=== PATIENT | female | born 1935 | race Caucasian/White ===

== ENCOUNTER 2017-11-21 11:33 | Observation (INO) | payer OTHER ==
[~2017-11-21] VITALS: Ht 167.6 cm; Wt 63.5 kg
[~2017-11-21 11:33] MED LIST: COZAAR 50 MG TA50 M1 PO; ELIQUIS2.5 MG PO; FENTANYL PA50 MCG/HR TRANSDERM; FENTANYL PATCH75 MCG TP; LEVOTHROID; LEVOTHYROXIN0.075 MG PO; MULTI VITAMIN1 EACH PO; PREVACID PO; PRILOSEC 20 MG20 MG PO; SYNTHROID75 MCG PO; VICODIN
[2017-11-21 11:37] VITALS: BP 201/90
[2017-11-21 12:45] LABS: ABSOLUTE LYMPHOCYTES 1.9 thou/uL (0.8-5.3); ABSOLUTE MONOCYTES 0.5 thou/uL (0.0-1.2); ABSOLUTE NEUTROPHILS 7.6 thou/uL (1.6-8.1); BASOPHILS 0.5 %; EOSINOPHILS 0.1 %; HEMATOCRIT 40.2 % (37.0-47.0); HEMOGLOBIN 13.6 gm/dL (12.0-15.0); LYMPHOCYTES 18.9 %; MCH 32.3 pg (26.0-34.0); MCHC 33.8 g/dL (28.0-37.0); MCV 95.5 fL (80.0-100.0); MONOCYTES 5.1 %; MPV 8.2 fl. (7.2-11.1); NUCLEATED RBCS 0 /100WBC; PLATELET COUNT* 223 thou/uL (150-400); POLYS 75.4 %; RBC 4.21 mil/uL (4.20-5.00); RDW-CV 13.6 % (10.5-14.5)
[2017-11-21 13:08] LABS: ANION GAP 12 mmol/L (7-16); BUN 18 mg/dL (7-18); CALCIUM 9.6 mg/dL (8.5-10.1); CHLORIDE 96 mmol/L (98-107); CO2 25 mmol/L (21-32); CREATININE 1.1 mg/dL (0.6-1.3); GLUCOSE 124 mg/dL (70-99); POTASSIUM 3.6 mmol/L (3.5-5.1); SODIUM 133 mmol/L (136-145)
[2017-11-21 13:09] LABS: APTT 29.7 Seconds (25.0-31.3); PROTIME 10.1 Seconds (9.20-11.50)
[2017-11-21 13:19] LABS: ALBUMIN 4.3 g/dL (3.4-5.0); ALKALINE PHOSPHATASE 86 U/L (46-116); LIPASE 162 U/L (73-393); NT-PRO BRAIN NAT PEPTIDE 422 pg/mL (<300); SGOT 15 U/L (15-37); SGPT 12 U/L (30-65); TOTAL BILIRUBIN 0.5 mg/dL (<0.1-1.0); TOTAL PROTEIN 7.6 g/dL (6.4-8.2); TROPONIN-I LEVEL <0.06 ng/mL (<0.06)
[2017-11-21 15:04] VITALS: BP 164/71
[2017-11-21 20:00] VITALS: BP 147/60
[2017-11-21 23:40] VITALS: BP 139/61
[2017-11-22 04:35] VITALS: BP 132/54
[2017-11-22 05:07] LABS: HEMATOCRIT 33.8 % (37.0-47.0); MCH 32.1 pg (26.0-34.0); MCHC 34.1 g/dL (28.0-37.0); MCV 94.1 fL (80.0-100.0); MPV 8.1 fl. (7.2-11.1); RBC 3.59 mil/uL (4.20-5.00); RDW-CV 13.6 % (10.5-14.5); WBC 9.1 thou/uL (4.0-11.0)
[2017-11-22 05:40] LABS: ANION GAP 10 mmol/L (7-16); BUN 13 mg/dL (7-18); CALCIUM 8.9 mg/dL (8.5-10.1); CHLORIDE 102 mmol/L (98-107); CO2 24 mmol/L (21-32); GLUCOSE 94 mg/dL (70-99); MAGNESIUM 1.9 mg/dL (1.8-2.4); SODIUM 136 mmol/L (136-145); TROPONIN-I LEVEL <0.06 ng/mL (<0.06)
[2017-11-22 05:59] LABS: HEMOGLOBIN 11.5 gm/dL (12.0-15.0)
[2017-11-22 07:30] VITALS: BP 125/66
[2017-11-22 15:24] VITALS: BP 125/66
--- NOTE | 2017-11-22 15:53 | EKG ---
[place] [address] ELECTROCARDIOGRAM REPORT Name: Bin CHEN [address] [id number] Admission: 11/21/17 Attend Phys: Casey Coronado, Discharge: Date of : 33 Report #: [id number] THIS REPORT FOR: //name// [facility] ED Test Date: 2017-11-21 Test Time: 11:42:12 Pat Name: Bin CHEN Department: Room: Gender: F Celery Packer: RADHA : 1935 Requested By: Susana Varner Order Number: [id number] MD: Raza Thompson Measurements Intervals [place] Rate: 88 P: 70 AR: 268 QRS: -15 QRSD: 90 T: 71 QT: 374 QTc: 453 Interpretive Statements Sinus rhythm Prolonged AR interval Left atrial enlargement Borderline left axis deviation Compared to ECG 06/02/2015 11:49:17 First degree AV block now present Electronically Signed On 11-22-2017 15:53:14 CDT by Raza Thompson [email or web address] <ELECTRONICALLY SIGNED> By: Raza Thompson MD, [facility] 11/22/17 1553 1142 1142 Raza Thompson MD, [facility] /EPI
--- NOTE | 2017-11-24 17:14 | CON ---
[address] [address] CONSULTATION Name: Bin CHEN Room: [address] Karo Sams#: [id number] Admission: 11/21/17 Attend Phys: Casey Coronado, Discharge: 11/22/17 Date of : 34 Report #: [id number] THIS REPORT FOR: //name// CC: Porsche Coronado DATE OF SERVICE: 11/22/2017 INDICATION: Chest pain. HISTORY OF PRESENT ILLNESS: The patient is a very pleasant 82-year-old white female with no prior history of coronary disease. She was admitted to the hospital with midsternal chest discomfort and palpitations. She did rule out for myocardial infarction with serial enzymes. EKG shows sinus rhythm with no significant ST or T-wave abnormalities. At the time of my interview, she is pain free. She reports the pain starting on Thursday and being intermittent through Thursday and Thursday. There was no radiation of the discomfort. She had no significant shortness of breath or diaphoresis with the discomfort. She denied any nausea or vomiting. There were no other associated symptoms. The pain was not worse with activity. She has dyspnea on exertion, but no orthopnea or shortness of breath at rest. She denies any history of syncope. Cardiac risk factor significant only for hypertension. PAST MEDICAL HISTORY: 1. Hypothyroidism. 2. Hypertension. PAST SURGICAL HISTORY: 1. T and A as a child. 2. TAHBSO. 3. Chronic back pain with previous injections. FAMILY HISTORY: The patient's mother developed heart disease in her 60s and in her 80s. There was no history of sudden . SOCIAL HISTORY: The patient is . She drinks alcohol rarely. She does not smoke now nor has she ever. ALLERGIES: SHE HAS MEDICAL INTOLERANCE [place] [address] CONSULTATION Name: Bin CHEN Room: [address] Karo Sams#: [id number] Admission: 11/21/17 Attend Phys: Casey Coronado, Discharge: 11/22/17 Date of : 33 Report #: [id number] HOME MEDICATIONS: Eliquis 2.5 mg p.o. b.i.d., levothyroxine 75 mcg daily, losartan 50 mg daily, multivitamin 1 tablet daily, omeprazole 20 mg daily. REVIEW OF SYSTEMS: A 14-point review of systems is positive for hypothyroidism, seasonal allergies, medical intolerance to Darvon and she wears glasses. Otherwise, 14-point review of systems unremarkable. PHYSICAL EXAMINATION: VITAL SIGNS: Blood pressure 125/66, pulse 58 and regular. GENERAL: This is a pleasant lady, in no distress. Mood and affect appropriate. HEENT: The patient is wearing glasses. Extraocular muscles intact. Mucous membranes are moist. NECK: Shows no jugular venous distention. There are no carotid bruits. CHEST: Reveals clear lung sapp without wheezes, rales or rhonchi. CARDIOVASCULAR: Reveals a regular rhythm with normal S1 and S2. I do not appreciate gallop or murmur. ABDOMEN: Reveals normal bowel sounds. The abdomen is soft and nontender. EXTREMITIES: Shows no edema. Peripheral pulses 2+ and palpable. SKIN: Warm and dry. A 12-lead EKG shows sinus rhythm with no significant ST or T-wave abnormalities. LABORATORY DATA: Reviewed. Electrolytes within normal limits. Troponins are less than 0.06 on 3 separate occasions. IMPRESSION AND RECOMMENDATIONS: 1. Atypical chest pain. The patient is ruled out for myocardial infarction. I believe she could be safely discharged to home and follow up as an outpatient with stress testing. This will be arranged. 2. History of gastroesophageal reflux. Continue omeprazole at current dose. 3. Hypertension. Blood pressure adequately controlled on losartan. 4. The patient has been on Eliquis for some time for possible diagnosis of atrial fibrillation, although I can find no indication of atrial fibrillation past or present. At this point in time, I would discontinue Eliquis. <ELECTRONICALLY SIGNED> By: Raza Thompson MD, FACC 11/24/17 1714 0943 1944Micmichel Thompson MD, FACC /nt
== END 2017-11-22 16:51 | disposition home or self-care (01) ==
LOC: M.ERS 11:33 → M.TBA-ER 14:11 → M.2W 14:11
PROVIDERS: Personal Emergency Response Attendant; ADMIT Family Medicine
DX: R07.89 Other chest pain (principal); I10 Essential (primary) hypertension; E03.9 Hypothyroidism, unspecified; K21.9 Gastro-esophageal reflux disease without esophagitis; M54.5 Low back pain; Z90.710 Acquired absence of both cervix and uterus

== ENCOUNTER 2018-01-08 09:22 | Emergency (ER) | payer OTHER ==
[~2018-01-08] VITALS: Ht 167.6 cm; Wt 59.0 kg
--- NOTE | ~2018-01-08 | EKG ---
[place] [address] ELECTROCARDIOGRAM REPORT Name: MELISSA CHEN [id number] Admission: 01/08/18 Attend Phys: Discharge: 01/08/18 Date of : 34 Report #: [id number] THIS REPORT FOR: //name// [facility] ED Test Date: 2018-01-08 Test Time: 09:56:01 Pat Name: Bin CHEN Department: Room: Gender: F Log Washer: GERALD : 1935 Requested By: Sloan Mari Order Number: [id number] MD: Measurements Intervals [place] Rate: 73 P: 48 SD: 213 QRS: -12 QRSD: 93 T: 36 QT: 379 QTc: 418 Interpretive Statements Sinus rhythm Borderline prolonged SD interval Abnormal R-wave progression, early transition Borderline repolarization abnormality Compared to ECG 11/21/2017 11:42:12 Atrial abnormality no longer present [email or web address] By: [id number] [id number] Epiphany EpiphanyMD /EPI
[2018-01-08] MEDS ORDERED: SYNTHROID100 MC1 PO (09:32)
[2018-01-08 10:12] LABS: ABSOLUTE MONOCYTES 0.7 thou/uL (0.0-1.2); ABSOLUTE NEUTROPHILS 6.5 thou/uL (1.6-8.1); BASOPHILS 0.2 %; EOSINOPHILS 0.1 %; HEMATOCRIT 39.6 % (37.0-47.0); HEMOGLOBIN 13.4 gm/dL (12.0-15.0); LYMPHOCYTES 21.5 %; MCH 31.9 pg (26.0-34.0); MCHC 33.8 g/dL (28.0-37.0); MCV 94.4 fL (80.0-100.0); MONOCYTES 7.8 %; MPV 6.7 fl. (7.2-11.1); NUCLEATED RBCS 0 /100WBC; PLATELET COUNT* 298 thou/uL (150-400); POLYS 70.4 %; RDW-CV 13.4 % (10.5-14.5); WBC 9.2 thou/uL (4.0-11.0)
[2018-01-08 10:23] LABS: ANION GAP 8 mmol/L (7-16); BUN 8 mg/dL (7-18); CALCIUM 9.8 mg/dL (8.5-10.1); CHLORIDE 95 mmol/L (98-107); CO2 24 mmol/L (21-32); CREATININE 0.9 mg/dL (0.6-1.3); GLUCOSE 117 mg/dL (70-99); POTASSIUM 3.6 mmol/L (3.5-5.1); PROTIME 10.1 Seconds (9.20-11.50); SODIUM 127 mmol/L (136-145)
[2018-01-08 10:34] LABS: ALBUMIN 3.9 g/dL (3.4-5.0); ALKALINE PHOSPHATASE 85 U/L (46-116); LIPASE 427 U/L (73-393); NT-PRO BRAIN NAT PEPTIDE 525 pg/mL (<300); SGOT 13 U/L (15-37); SGPT 19 U/L (30-65); TOTAL BILIRUBIN 0.4 mg/dL (<0.1-1.0); TOTAL PROTEIN 7.4 g/dL (6.4-8.2); TROPONIN-I LEVEL <0.06 ng/mL (<0.06)
[2018-01-08 11:15] LABS: URINE BILIRUBIN NEGATIVE (Negative); URINE BLOOD 2+ (Negative); URINE CLARITY CLEAR; URINE COLOR YELLOW; URINE GLUCOSE-RANDOM NEGATIVE (Negative); URINE KETONES NEGATIVE (Negative); URINE LEUKOCYTES-REFLEX TRACE (Negative); URINE PROTEIN NEGATIVE (Negative); URINE SPECIFIC GRAVITY 1.015 (1.005-1.030); URINE UROBILINOGEN 0.2 E.U./dl (0.2-1.0)
[2018-01-08 11:22] LABS: URINE NITRITE-REFLEX POSITIVE (Negative)
[2018-01-08 11:31] LABS: BACTERIA-REFLEX >30 Many /HPF (None Seen); SQUAMOUS 0-3 Few /LPF (0-3); URINE RBC 3-10 Few /HPF (0-2); URINE WBC-REFLEX 0-5 Rare /HPF (0-5)
[2018-01-08 11:32] LABS: CASTS None Seen /LPF (None Seen); CRYSTALS None Seen /LPF (None Seen); MUCUS 4-6 Moderate strn/LPF (None Seen)
[2018-01-08] MEDS ORDERED: MACROBID 100 M100 M1 PO (11:39)
[2018-01-08] MEDS ORDERED: HYDROCODON-ACE1 EAC7 PO (11:39)
[2018-01-08 11:51] VITALS: BP 154/70
== END 2018-01-08 11:53 | disposition home or self-care (01) ==
LOC: M.ERS 09:22
PROVIDERS: Emergency Medicine
DX: N39.0 Urinary tract infection, site not specified (principal); G89.29 Other chronic pain; M54.5 Low back pain; E03.9 Hypothyroidism, unspecified; I10 Essential (primary) hypertension; Z90.710 Acquired absence of both cervix and uterus; Z88.8 Allergy status to other drugs, medicaments and biological substances

== ENCOUNTER 2018-01-18 16:14 | Emergency (ER) | payer OTHER ==
[~2018-01-18] VITALS: Ht 167.6 cm; Wt 59.0 kg
[~2018-01-18 16:14] MED LIST changes: +HYDROCODON-ACE1 EAC7 PO; +MACROBID 100 M100 M1 PO; +SYNTHROID100 MC1 PO
[2018-01-18 16:48] LABS: ABSOLUTE EOSINOPHILS 0.1 thou/uL (0.0-0.7); ABSOLUTE LYMPHOCYTES 2.9 thou/uL (0.8-5.3); ABSOLUTE MONOCYTES 0.6 thou/uL (0.0-1.2); ABSOLUTE NEUTROPHILS 4.3 thou/uL (1.6-8.1); BASOPHILS 0.6 %; EOSINOPHILS 1.6 %; HEMATOCRIT 41.3 % (37.0-47.0); HEMOGLOBIN 13.7 gm/dL (12.0-15.0); LYMPHOCYTES 36.4 %; MCH 32.1 pg (26.0-34.0); MCHC 33.1 g/dL (28.0-37.0); MCV 96.9 fL (80.0-100.0); MONOCYTES 7.4 %; MPV 6.9 fl. (7.2-11.1); NUCLEATED RBCS 0 /100WBC; PLATELET COUNT* 232 thou/uL (150-400); RBC 4.26 mil/uL (4.20-5.00); RDW-CV 13.5 % (10.5-14.5)
[2018-01-18 16:52] LABS: ANION GAP 6 mmol/L (7-16); BUN 14 mg/dL (7-18); CALCIUM 10.3 mg/dL (8.5-10.1); CHLORIDE 95 mmol/L (98-107); CO2 28 mmol/L (21-32); CREATININE 1.2 mg/dL (0.6-1.3); GLUCOSE 113 mg/dL (70-99); POTASSIUM 4.1 mmol/L (3.5-5.1); SODIUM 129 mmol/L (136-145)
[2018-01-18 17:07] LABS: ALBUMIN 3.9 g/dL (3.4-5.0); ALKALINE PHOSPHATASE 85 U/L (46-116); LIPASE 95 U/L (73-393); SGOT 12 U/L (15-37); SGPT 14 U/L (30-65); TOTAL BILIRUBIN 0.2 mg/dL (<0.1-1.0); TOTAL PROTEIN 7.5 g/dL (6.4-8.2); TROPONIN-I LEVEL <0.06 ng/mL (<0.06)
[2018-01-18 17:45] LABS: URINE BILIRUBIN NEGATIVE (Negative); URINE BLOOD TRACE (Negative); URINE CLARITY CLEAR; URINE COLOR YELLOW; URINE GLUCOSE-RANDOM NEGATIVE (Negative); URINE KETONES NEGATIVE (Negative); URINE LEUKOCYTES-REFLEX NEGATIVE (Negative); URINE NITRITE-REFLEX NEGATIVE (Negative); URINE PROTEIN NEGATIVE (Negative); URINE UROBILINOGEN 0.2 E.U./dl (0.2-1.0)
[2018-01-18] MEDS ORDERED: COMPAZINE10 M2 PO (17:55)
[2018-01-18 18:06] VITALS: BP 140/66
--- NOTE | 2018-01-20 13:30 | EKG ---
[place] [address] ELECTROCARDIOGRAM REPORT Name: MELISSA CHEN [id number] Admission: 01/18/18 Attend Phys: Discharge: 01/18/18 Date of : 34 Report #: [id number] THIS REPORT FOR: //name// [facility] ED Test Date: 2018-01-18 Test Time: 16:41:13 Pat Name: MELISSA CHEN Department: Room: Gender: F Sliding Joint Maker: Hafsa BRADFORD : 1935 Requested By: Anamika Segura Order Number: [id number] MD: Raza Thompson Measurements Intervals [place] Rate: 74 P: 61 TN: 204 QRS: -10 QRSD: 93 T: 76 QT: 365 QTc: 405 Interpretive Statements Sinus rhythm Ventricular premature complex Nonspecific T abnrm, anterolateral leads Compared to ECG 11/21/2017 11:42:12 Ventricular premature complex(es) now present First degree AV block no longer present Atrial abnormality no longer present Electronically Signed On 01-20-2018 13:30:36 CDT by Raza Thompson [email or web address] <ELECTRONICALLY SIGNED> By: Raza Thompson MD, FACC 01/20/18 1330 1641 1641 Raza Thompson MD, [facility] /EPI
== END 2018-01-18 18:09 | disposition home or self-care (01) ==
LOC: M.ERS 16:14
PROVIDERS: Nurse Practitioner Family
DX: R11.0 Nausea (principal); I10 Essential (primary) hypertension; E03.9 Hypothyroidism, unspecified; G89.29 Other chronic pain; M54.5 Low back pain; Z90.710 Acquired absence of both cervix and uterus; Z88.2 Allergy status to sulfonamides; Z88.8 Allergy status to other drugs, medicaments and biological substances

== ENCOUNTER 2018-03-13 06:12 | Inpatient (IN) | payer OTHER ==
[~2018-03-13] VITALS: Ht 167.6 cm; Wt 76.2 kg
[~2018-03-13 06:12] MED LIST changes: +COMPAZINE10 M2 PO
[2018-03-13 06:23] VITALS: BP 197/82
[2018-03-13] MEDS ORDERED: ELIQUIS2.5 MG PO (06:33)
[2018-03-13 06:59] LABS: ABSOLUTE EOSINOPHILS 0.1 thou/uL (0.0-0.7); ABSOLUTE LYMPHOCYTES 1.6 thou/uL (0.8-5.3); ABSOLUTE MONOCYTES 0.5 thou/uL (0.0-1.2); BASOPHILS 0.6 %; EOSINOPHILS 1.1 %; HEMATOCRIT 37.3 % (37.0-47.0); HEMOGLOBIN 12.5 gm/dL (12.0-15.0); LYMPHOCYTES 22.3 %; MCHC 33.6 g/dL (28.0-37.0); MCV 98.3 fL (80.0-100.0); MONOCYTES 6.4 %; MPV 7.3 fl. (7.2-11.1); NUCLEATED RBCS 0 /100WBC; PLATELET COUNT* 222 thou/uL (150-400); POLYS 69.6 %; RBC 3.79 mil/uL (4.20-5.00); RDW-CV 15.8 % (10.5-14.5); WBC 7.2 thou/uL (4.0-11.0)
[2018-03-13 07:09] LABS: ANION GAP 7 mmol/L (7-16); BUN 14 mg/dL (7-18); CALCIUM 8.7 mg/dL (8.5-10.1); CHLORIDE 105 mmol/L (98-107); CO2 27 mmol/L (21-32); CREATININE 0.9 mg/dL (0.6-1.3); GLUCOSE 114 mg/dL (70-99); POTASSIUM 3.7 mmol/L (3.5-5.1); SODIUM 139 mmol/L (136-145)
[2018-03-13 07:24] LABS: ALBUMIN 3.7 g/dL (3.4-5.0); ALKALINE PHOSPHATASE 64 U/L (46-116); LIPASE 443 U/L (73-393); MAGNESIUM 1.8 mg/dL (1.8-2.4); NT-PRO BRAIN NAT PEPTIDE 205 pg/mL (<300); SGOT 10 U/L (15-37); SGPT 14 U/L (30-65); TOTAL BILIRUBIN 0.3 mg/dL (<0.1-1.0); TOTAL PROTEIN 6.9 g/dL (6.4-8.2); TROPONIN-I LEVEL <0.06 ng/mL (<0.06)
[2018-03-13 09:20] VITALS: BP 144/76
[2018-03-13 17:23] VITALS: BP 152/67
[2018-03-13 20:00] VITALS: BP 151/78
[2018-03-14] VITALS: BP 148/70
[2018-03-14 04:00] VITALS: BP 154/70
[2018-03-14 08:30] VITALS: BP 137/81
[2018-03-14] MEDS ORDERED: COREG6.25 MG PO ×2 (12:10→12:12)
[2018-03-14 12:11] VITALS: BP 137/81
[2018-03-14 12:43] VITALS: BP 150/81
--- NOTE | 2018-03-14 16:58 | EKG ---
[place] [address] ELECTROCARDIOGRAM REPORT Name: SHELBY CHEN Room: [address] DIS IN M.R.#: [id number] Admission: 03/13/18 Attend Phys: Iona Corona Discharge: 03/14/18 Date of : 33 Report #: [id number] THIS REPORT FOR: //name// [facility] ED Test Date: 2018-03-13 Test Time: 06:19:52 Pat Name: SHELBY CHEN Department: Room: [facility] Gender: F Manager Resource: Hafsa CORBIN : 1935 Requested By: Xavier Chakraborty Order Number: [id number] MD: Raza Thompson Measurements Intervals [place] Rate: 82 P: 46 WI: 185 QRS: -17 QRSD: 94 T: 56 QT: 371 QTc: 434 Interpretive Statements Sinus rhythm Borderline left axis deviation Minimal ST depression, anterolateral leads Compared to ECG 01/18/2018 16:41:13 ST (T wave) deviation now present Ventricular premature complex(es) no longer present Electronically Signed On 03-14-2018 16:58:41 CDT by Raza Thompson [email or web address] <ELECTRONICALLY SIGNED> By: Raza Thompson MD, FACC 03/14/18 1658 0619 0619 Raza Thompson MD, FACC /EPI
--- NOTE | 2018-03-22 12:28 | CON ---
[facility] [address] [place] [address] CONSULTATION Name: SHELBY CHEN Room: [address] IN M.R.#: [id number] Admission: 03/13/18 Attend Phys: Iona Corona Discharge: 03/14/18 Date of : 34 Report #: [id number] THIS REPORT FOR: //name// CC: Tom Jacobs INDICATION: Chest pain and questionable arrhythmia. HISTORY OF PRESENT ILLNESS: The patient is a very pleasant 82-year-old white female who was admitted to the hospital with chest pain. She has intermittently been on Eliquis. Extensive review of available records shows no evidence of atrial fibrillation. On admission, the patient was in sinus rhythm. She has remained in sinus rhythm throughout hospitalization. She was admitted yesterday with upper chest pressure starting yesterday morning and lasting at least an hour or two. The pain resolved spontaneously. EKG showed sinus rhythm without acute ST or T-wave abnormalities. She did rule out for myocardial infarction with serial enzymes. At the time of my interview, she is pain-free. She had no radiation of the discomfort. She denied any associated diaphoresis or nausea. She is without other cardiac complaint at this time. PAST MEDICAL HISTORY: 1. Hypertension. 2. Hypothyroidism. PAST SURGICAL HISTORY: 1. T and A as a child. 2. TAHBSO. 3. Chronic back pain with previous injections. FAMILY HISTORY: The patient's mother in her 90s. There was no history of sudden . No history of premature atherosclerotic coronary artery disease. SOCIAL HISTORY: The patient is . She does not smoke. She drinks alcohol rarely. ALLERGIES: Intolerance to DARVON. HOME MEDICATIONS: Eliquis 2.5 mg p.o. b.i.d., Synthroid 100 mcg p.o. q. day, Cozaar 50 mg p.o. q. day, multivitamin 1 tablet daily. REVIEW OF SYSTEMS: A 14-point GENERAL: She denies convulsions, seizures or focal paralysis. In general, there is no unexplained weight loss or fever. RESPIRATORY: She denies cough, sputum production or underlying lung disease. CARDIAC: [place] [address] CONSULTATION Name: SHELBY CHEN MELISSA Room: [address]#: [id number] Admission: 03/13/18 Attend Phys: Iona Corona Discharge: 03/14/18 Date of : 34 Report #: [id number] ENDOCRINE: She has hypothyroidism. She denies diabetes. GASTROINTESTINAL: No nausea, vomiting, hematemesis, melena, hematochezia, jaundice, or hepatitis. GENITOURINARY: No dysuria or hematuria. HEMATOLOGIC AND LYMPHATIC: No history of anemia, bleeding disorder, cancer, or blood clots. ALLERGY AND IMMUNOLOGIC: She has intolerance as outlined above. No seasonal allergies. PSYCHIATRIC: No depression or anxiety. MUSCULOSKELETAL: She has arthritis without connective tissue diseases. SKIN: No recent rashes, hives or chronic skin conditions. EYES: She does wear glasses. She has no acute loss in vision. EARS, NOSE, MOUTH, THROAT: She denies decreased hearing or epistaxis. PHYSICAL EXAMINATION: VITAL SIGNS: Stable. Blood pressure 137/81, pulse 86 and regular. GENERAL: This is a pleasant elderly female in no distress. Mood and affect appropriate. HEENT: The patient is wearing glasses. Extraocular muscles intact. Mucous membranes are moist. NECK: Shows no jugular venous distention. There are no carotid bruits. CHEST: Reveals clear lung sapp without wheezes or rales. CARDIAC: Reveals a regular rhythm with normal S1, S2. I do not appreciate gallop or murmur. ABDOMEN: Reveals normal bowel sounds. The abdomen is soft and nontender. EXTREMITIES: Shows no edema. Peripheral pulses 2+ and palpable. SKIN: Warm and dry. IMPRESSION AND PLAN: 1. Atypical chest pain. The patient has ruled out for myocardial infarction. I believe she could be followed up with outpatient stress testing. 2. The patient has been on Eliquis intermittently. I find no history of atrial fibrillation. At this point in time, I would discontinue Eliquis. 3. Hypertension, adequately controlled on current regimen. At this point in time, the patient appears stable for discharge from a cardiac standpoint. <ELECTRONICALLY SIGNED> By: Raza Thompson MD, FACC 03/22/18 1228 1158 1901[facility] Hospitalmichel Thompson MD, FACC /nt
== END 2018-03-14 13:53 | disposition home or self-care (01) | DRG 309 ==
LOC: M.ERS 06:12 → M.TBA-ER 08:10 → M.2W 08:10
PROVIDERS: Emergency Medicine Emergency Medical Services; ADMIT Internal Medicine
DX: I48.0 Paroxysmal atrial fibrillation (principal); D68.69 Other thrombophilia; G89.29 Other chronic pain; M54.5 Low back pain; E03.9 Hypothyroidism, unspecified; M54.9 Dorsalgia, unspecified; I10 Essential (primary) hypertension; Z88.2 Allergy status to sulfonamides; Z88.8 Allergy status to other drugs, medicaments and biological substances; Z90.710 Acquired absence of both cervix and uterus; Z79.82 Long term (current) use of aspirin; Z79.899 Other long term (current) drug therapy; Z82.49 Family history of ischemic heart disease and other diseases of the circulatory system

== ENCOUNTER 2019-02-28 10:12 | Emergency (ER) | payer OTHER ==
[~2019-02-28] VITALS: Ht 167.6 cm; Wt 63.5 kg
[~2019-02-28 10:12] MED LIST changes: +COREG6.25 MG PO
[2019-02-28 10:31] LABS: ABSOLUTE BASOPHILS 0.1 thou/uL (0.0-0.2); ABSOLUTE EOSINOPHILS 0.3 thou/uL (0.0-0.7); ABSOLUTE LYMPHOCYTES 1.7 thou/uL (0.8-5.3); ABSOLUTE MONOCYTES 0.5 thou/uL (0.0-1.2); ABSOLUTE NEUTROPHILS 2.6 thou/uL (1.6-8.1); BASOPHILS 1.9 %; EOSINOPHILS 5.6 %; HEMOGLOBIN 12.6 gm/dL (12.0-15.0); LYMPHOCYTES 33.6 %; MCH 33.6 pg (26.0-34.0); MCHC 34.1 g/dL (28.0-37.0); MCV 98.5 fL (80.0-100.0); MONOCYTES 8.7 %; MPV 7.3 fl. (7.2-11.1); NUCLEATED RBCS 0 /100WBC; PLATELET COUNT* 225 thou/uL (150-400); POLYS 50.2 %; RBC 3.76 mil/uL (4.20-5.00); RDW-CV 13.5 % (10.5-14.5); WBC 5.2 thou/uL (4.0-11.0)
[2019-02-28 10:47] LABS: APTT 26.5 Seconds (25.0-31.3); PROTIME 9.9 Seconds (9.20-11.50)
[2019-02-28 10:48] LABS: ANION GAP 6 mmol/L (7-16); BUN 15 mg/dL (7-18); CALCIUM 8.7 mg/dL (8.5-10.1); CHLORIDE 104 mmol/L (98-107); CO2 29 mmol/L (21-32); CREATININE 0.9 mg/dL (0.6-1.3); GLUCOSE 103 mg/dL (70-99); POTASSIUM 4.2 mmol/L (3.5-5.1); SODIUM 139 mmol/L (136-145)
[2019-02-28 11:04] LABS: ALBUMIN 3.5 g/dL (3.4-5.0); ALKALINE PHOSPHATASE 65 U/L (46-116); CK-MB MASS 1.5 ng/mL (<0.5-3.6); LIPASE 145 U/L (73-393); MAGNESIUM 1.9 mg/dL (1.8-2.4); NT-PRO BRAIN NAT PEPTIDE 261 pg/mL (<300); SGOT 10 U/L (15-37); SGPT 14 U/L (30-65); TOTAL BILIRUBIN 0.2 mg/dL (<0.1-1.0); TOTAL PROTEIN 6.7 g/dL (6.4-8.2); TROPONIN-I LEVEL <0.06 ng/mL (<0.06)
[2019-02-28 13:25] VITALS: BP 150/84
--- NOTE | 2019-03-01 16:11 | EKG ---
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: RADHA : 1935 Requested By: Pato Rodriguez Order Number: [id number] MD: Javier Del Toro Measurements Intervals [place] Rate: 60 P: 53 CT: 224 QRS: -9 QRSD: 90 T: 36 QT: 387 QTc: 387 Interpretive Statements Sinus rhythm Prolonged CT interval Borderline T abnormalities, anterior leads Compared to ECG 03/13/2018 06:19:52 First degree AV block now present T-wave abnormality now present ST (T wave) deviation no longer present Electronically Signed On 03-01-2019 16:11:32 CDT by Javier Del Toro [email or web address] <ELECTRONICALLY SIGNED> By: Javier Del Toro MD, [facility] 03/01/19 1611 1019 1019 Javier Del Toro MD, [facility] /EPI
== END 2019-02-28 13:28 | disposition home or self-care (01) ==
LOC: M.ERS 10:12
PROVIDERS: Family Medicine
DX: R07.89 Other chest pain (principal); I10 Essential (primary) hypertension; G89.29 Other chronic pain; E03.9 Hypothyroidism, unspecified; Z88.2 Allergy status to sulfonamides; Z88.8 Allergy status to other drugs, medicaments and biological substances; Z90.710 Acquired absence of both cervix and uterus

== ENCOUNTER 2019-03-17 20:16 | Inpatient (IN) | payer OTHER ==
[~2019-03-17] VITALS: Ht 167.6 cm; Wt 63.5 kg
--- NOTE | ~2019-03-17 | CON ---
[address] [address] CONSULTATION Name: GUSTAVOSHELBY LITTLEJOHN Room: [address] IN M.R.#: [id number] Admission: 03/18/19 Attend Phys: Dago Cruz Discharge: 03/18/19 Date of : 34 Report #: [id number] THIS REPORT FOR: //name// CC: Porsche Jarrell DICTATED BY: Leanne Meléndez [facility] DATE OF SERVICE: 03/18/2019 Please note at the time of this dictation, the patient was seen and physically examined by myself. REASON FOR CONSULTATION: Epigastric pain and abnormal CT in the right side of her colon. HISTORY OF PRESENT ILLNESS: This is an 83-year-old female who presented to the Emergency Room with having epigastric to right upper quadrant pain, which she states she has been having it for several weeks if not longer. She describes as more chest pain, but upon palpation, it is more epigastric and right upper quadrant pain. She states it was beginning to get a little bit worse, prompting her to come in to be seen. She has seen her PCP and she has been set up to see Cardiology, she says the first part of March. She denies any nausea, vomiting, shortness of air, any diaphoresis with this. She states it is not exacerbated with activity and she has not noticed significant worsening or improvement with eating. She has a negative cardiac history for any MN or cardiac stents. She did have a colonoscopy and EGD back in 2010. Her EGD was negative. Colonoscopy showed collagenous colitis and that was the last time that she was seen by our office. She states she has not seen anyone since that time either. The patient states she also will have an occasional episode of some GERD in which she may take some Maalox off and on. She has not been eating for the last couple of days because of this epigastric pain as well. She does state her bowels do move on a daily basis. She says that has soft and formed. ALLERGIES: SULFA, PROPOXYPHENE. MEDICATIONS: From home are losartan and Synthroid. PAST MEDICAL HISTORY: Hypothyroidism, hypertension. She had had some history of atrial fib in the past. PAST SURGICAL HISTORY: She had a hysterectomy and some history of chronic lumbar pain. FAMILY HISTORY: Negative for [place] [address] CONSULTATION Name: SHELBY CHEN MELISSA Room: [address]#: [id number] Admission: 03/18/19 Attend Phys: Dago Cruz Discharge: 03/18/19 Date of : 34 Report #: [id number] SOCIAL HISTORY: She is . Denies any alcohol except on social occasions. No tobacco or illegal drug use. REVIEW OF SYSTEMS: Twelve-point review of systems is essentially negative except what is mentioned in the HPI. PHYSICAL EXAMINATION: VITAL SIGNS: Temperature 36.8, pulse 58, respirations 14, blood pressure 134/52. HEART: Regular rate and rhythm. LUNGS: Clear. ABDOMEN: Soft, positive bowel sounds in all 4 quadrants with epigastric to right upper quadrant tenderness noted to palpation with very minimal tenderness noted on the right side of the abdomen. LABORATORY DATA: Hemoglobin 11.1, white count 9.1, platelets 279. LFTs are completely normal. Troponin was negative. GFR is 47. PT 10.2, INR is 1. CT reveals a right colonic wall thickening with left-sided colon and moderate amount of stool. Her gallbladder is thickened with being contracted. IMPRESSION: 1. Epigastric and right upper quadrant pain ongoing greater than several weeks. 2. Abnormal CT with right colonic wall thickening and gallbladder wall thickening. 3. Gastroesophageal reflux disease off and on. PLAN: 1. Hepatobiliary scan today. 2. Further recommendations to be made once the above testing has been performed. Thank you for allowing us to participate in this patient's care. Please do not hesitate to call with any questions in regard to this consult. By: [id number] Paul Carter DO /marisol
[2019-03-17 20:21] VITALS: BP 125/71
[2019-03-17 21:13] LABS: ABSOLUTE BASOPHILS 0.1 thou/uL (0.0-0.2); ABSOLUTE EOSINOPHILS 0.2 thou/uL (0.0-0.7); ABSOLUTE LYMPHOCYTES 2.9 thou/uL (0.8-5.3); ABSOLUTE MONOCYTES 0.7 thou/uL (0.0-1.2); ABSOLUTE NEUTROPHILS 5.3 thou/uL (1.6-8.1); BASOPHILS 1.1 %; EOSINOPHILS 1.7 %; HEMATOCRIT 32.7 % (37.0-47.0); HEMOGLOBIN 11.1 gm/dL (12.0-15.0); LYMPHOCYTES 31.8 %; MCH 33.4 pg (26.0-34.0); MCV 98.1 fL (80.0-100.0); MONOCYTES 7.2 %; MPV 7.4 fl. (7.2-11.1); NUCLEATED RBCS 0 /100WBC; PLATELET COUNT* 279 thou/uL (150-400); POLYS 58.2 %; RBC 3.34 mil/uL (4.20-5.00); RDW-CV 14.2 % (10.5-14.5); WBC 9.1 thou/uL (4.0-11.0)
[2019-03-17 21:19] LABS: ANION GAP 9 mmol/L (7-16); BUN 22 mg/dL (7-18); CALCIUM 9.2 mg/dL (8.5-10.1); CHLORIDE 102 mmol/L (98-107); CO2 26 mmol/L (21-32); CREATININE 1.1 mg/dL (0.6-1.3); GLUCOSE 107 mg/dL (70-99); POTASSIUM 3.6 mmol/L (3.5-5.1); SODIUM 137 mmol/L (136-145)
[2019-03-17 21:22] LABS: PROTIME 10.2 Seconds (9.20-11.50)
[2019-03-17 21:31] LABS: ALBUMIN 3.8 g/dL (3.4-5.0); ALKALINE PHOSPHATASE 58 U/L (46-116); LIPASE 338 U/L (73-393); NT-PRO BRAIN NAT PEPTIDE 213 pg/mL (<300); SGOT 9 U/L (15-37); SGPT 13 U/L (30-65); TOTAL BILIRUBIN 0.2 mg/dL (<0.1-1.0); TOTAL PROTEIN 6.8 g/dL (6.4-8.2); TROPONIN-I LEVEL <0.06 ng/mL (<0.06)
[2019-03-17 21:42] LABS: URINE BILIRUBIN NEGATIVE (Negative); URINE BLOOD NEGATIVE (Negative); URINE CLARITY CLEAR; URINE COLOR YELLOW; URINE GLUCOSE-RANDOM NEGATIVE (Negative); URINE KETONES NEGATIVE (Negative); URINE LEUKOCYTES-REFLEX TRACE (Negative); URINE NITRITE-REFLEX NEGATIVE (Negative); URINE PROTEIN NEGATIVE (Negative); URINE SPECIFIC GRAVITY 1.025 (1.005-1.030); URINE UROBILINOGEN 0.2 E.U./dl (0.2-1.0)
[2019-03-17 21:54] LABS: MUCUS None Seen strn/LPF (None Seen)
[2019-03-17 21:55] LABS: BACTERIA-REFLEX 1-9 Few /HPF (None Seen); CASTS None Seen /LPF (None Seen); CRYSTALS None Seen /LPF (None Seen); SQUAMOUS 4-10 Moderate /LPF (0-3); URINE WBC-REFLEX 0-5 Rare /HPF (0-5)
[2019-03-17 21:56] LABS: URINE RBC None Seen /HPF (0-2)
[2019-03-18 04:00] VITALS: BP 148/60
--- NOTE | 2019-03-18 07:10 | NUR ---
THIS NURSE RECEIVED REPORT FROM NOLVIA RUBIO. THIS NURSE TO ASSUME PT CARE AT THIS TIME.
--- NOTE | 2019-03-18 12:42 | EKG ---
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 Technician: CHAUNCEY : 1935 Requested By: Augustina Scott Order Number: [id number] MD: Pramod Benítez Measurements Intervals [place] Rate: 68 P: 54 ME: 210 QRS: -7 QRSD: 89 T: 54 QT: 372 QTc: 396 Interpretive Statements Sinus rhythm Borderline repolarization abnormality Compared to ECG 02/28/2019 10:19:37 First degree AV block no longer present Electronically Signed On 03-18-2019 12:42:20 CDT by Pramod Benítez [email or web address] <ELECTRONICALLY SIGNED> By: Pramod Benítez MD, FAC 03/18/19 1242 20 20 Pramod Benítez MD, [facility] /EPI
--- NOTE | 2019-03-18 14:00 | NUR ---
PT NOT IN ROOM. PT TO [employer] FOR SCAN OF GALLBLADDER.
--- NOTE | 2019-03-18 16:12 | NUR ---
PT BACK FROM [facility].
--- NOTE | 2019-03-18 16:21 | NUR ---
REPORT GIVEN TO NOLVIA DAVIS WHO IS TO ASSUME PT CARE INPATIENT NURSE.
[2019-03-18 16:22] VITALS: BP 131/49
[2019-03-18 17:15] VITALS: BP 131/49
--- NOTE | 2019-03-18 18:21 | NUR ---
ASSUMED CARE OF PATIENT AT APPROX 0730. ALERT AND ORIENTED X4. ASSESSMENT COMPLETED AND CHARTED. VSS ON ROOM AIR. GIVEN SCHEDULED TRAMADOL, MINIMAL COMPLAINT OF PAIN. NO OTHER COMPLAINTS. FLUIDS AND ANTIBIOTIC INFUSED ORDERED. PATIENT UP AD DELTA. DAVE LIGHT PLACED IN REACH. WILL CONTINUE TO MONITOR.
--- NOTE | 2019-03-18 20:00 | NUR ---
REMOVED PT IV SO SHE COULD LEAVE AMA. PRESSURE HELD, BLEEDING STOPPED, BANDAID AND COTTON BALL APPLIED. PT LEFT FLOOR TO RETURN HOME.
== END 2019-03-18 20:00 | disposition left against medical advice (07) | DRG 373 ==
LOC: M.ERS 20:16 → M.TBA-ER 03-18 00:33 → M.ORTHSURG 03-18 16:32
PROVIDERS: Emergency Medicine; ADMIT Family Medicine
DX: A04.9 Bacterial intestinal infection, unspecified (principal); E03.9 Hypothyroidism, unspecified; I10 Essential (primary) hypertension; I48.91 Unspecified atrial fibrillation; G89.29 Other chronic pain; Z53.21 Procedure and treatment not carried out due to patient leaving prior to being seen by health care provider; M54.5 Low back pain; K21.9 Gastro-esophageal reflux disease without esophagitis; Z82.49 Family history of ischemic heart disease and other diseases of the circulatory system; Z90.710 Acquired absence of both cervix and uterus; Z88.2 Allergy status to sulfonamides; Z88.8 Allergy status to other drugs, medicaments and biological substances; Z79.899 Other long term (current) drug therapy

== ENCOUNTER → 2019-04-15 | Outpatient (CLI) | payer OTHER ==
--- NOTE | 2019-04-15 15:57 | CARDNUC ---
[place] [address] CARDIAC NUCLEAR IMAGING REPORT Name: SHELBY CHEN Room: [facility]#: [id number] Admission: 04/15/19 Attend Phys: Ny Kyle Discharge: Date of : 33 Date of Service: 04/15/19 1557 Report #: [id number] THIS REPORT FOR: //name// APPROVED REPORT Study performed: 04/15/2019 14:26:38 Exam: Nuclear Stress Test Indication: Atrial Fibrillation, elevated calcium score Patient Location: Out-Patient Stress Tech: Jia Dorsey Stress Nurse: Lashell Mares RN Ht: 5 ft 6 in Wt: 141 lbs BSA: 1.72 m2 BMI: 22.75 Medical History Medical History: CAD non obstructive, HTN, Hyperlipidemia Medications: losartan, carvedilol Allergies: darvon, tramadol Cardiac Risk Factors: Age, HTN, Hyperlipidemia, FHX of CAD Exercise History: Physically active Meds Held (24 hrs): carvedilol Stress Test Details Stress Test: Pharmacologic stress testing performed using 0.4 mg of regadenoson per 5 mL given IV over 10 seconds. Reason for pharmacologic stress test: physical limitation. HR Resting HR: 64 bpm Max Heart Rate (APMHR): 135 bpm Max HR Achieved: 101 bpm Target HR (85% APMHR): 114 bpm % of APMHR: 74 Recovery HR: 94 bpm HR response to stress: Normal HR response to stress BP Resting BP: 148/86 mmHg Max BP: 187/75 mmHg BP response to stress: Normal blood pressure response to stress. ECG Resting ECG: Sinus Rhythm, [place] [address] CARDIAC NUCLEAR IMAGING REPORT Name: GUSTAVOSHELBY TORRES Room: [facility]#: [id number] Admission: 04/15/19 Attend Phys: Ny Kyle Discharge: Date of : 33 Date of Service: 04/15/19 1557 Report #: [id number] Stress ECG: Sinus Rhythm, normal EKG ST Change: None Maximum ST Deviation: 0 mm Arrhythmia: VPC's Recovery ECG: Sinus Rhythm, normal EKG Recovery ST Change: None Recovery ST Deviation: 0 mm Recovery Arrhythmia: VPC Clinical Reason for Termination: Completed protocol Stress Symptoms: None Exercise duration: 0 min sec Exercise capacity: 1 METs Nurse Comments pt too unsteady to walk on treadmill Stress ECG Conclusion Normal hemodynamic response to pharmacologic stress. Non-diagnostic EKG stress due to failure to attain target HR. NM EXAM: Myocardial Perfusion REST/STRESS Imaging Protocol: Rest Tc-99m/Stress Tc-99m 1 day Resting Data Rest SPECT myocardial perfusion imaging was performed in supine position 30 minutes following the intravenous injection of 10.3 mCi of Tc-99m Sestamibi. Time of rest injection: 13:05 The images were gated to evaluate regional wall motion and calculate left ventricular ejection fraction. Administration Route: IV Administration Site: Right Wrist Pharmacologic Stress Pharmacologic stress test was performed by injecting Regadenoson 0.4 mg IV push followed by the intravenous injection of 35.7 mCi of Tc-99m Sestamibi. Time of stress injection: 14:25 Administration Route: IV Administration Site: Right Wrist Heart Rate at time of stress injection: 101 bpm. Gated Stress SPECT was performed 40 minutes after stress injection. The images were gated to evaluate regional [place] [address] CARDIAC NUCLEAR IMAGING REPORT Name: SHELBY CHEN MELISSA Room: [facility]#: [id number] Admission: 04/15/19 Attend Phys: Ny Kyle Discharge: Date of : 33 Date of Service: 04/15/19 1557 Report #: [id number] left ventricular ejection fraction. Prone imaging was performed. Study Quality Study: Good Artifact: Mild Diaphragmatic artifact Lung Uptake: Normal Study Data At rest, the left ventricular ejection fraction was 68%.. Post stress, the left ventricular ejection was 69%.. SSS: 6 SRS: 3 SDS: 3 TID = 1.10. Perfusion The resting study demonstrated a moderate in size and mild intensity inferior defect and a small in size mild intensity apical defect. The post stress images are essentially unchanged from those seen at rest. Prone images were obtained and were normal there were no defects seen. There are no reversible defects seen is no evidence of myocardial ischemia. The defects seen both at rest and with stress or consistent with diaphragmatic artifact. Images were reviewed using [employer]. Wall Motion Normal left ventricular wall motion. Nuclear Conclusion ECG Findings: non-diagnostic Clinical Findings: negative for ischemia Nuclear Findings: negative for ischemia Exercise Capacity: not assessed Left Ventricular Function: normal Risk Study: low Normal study. No scintigraphic evidence for myocardial ischemia or scar. <Conclusion> Normal hemodynamic response to pharmacologic stress. Non-diagnostic EKG stress due to failure to attain target HR. <ELECTRONICALLY SIGNED> By: Concepción Villanueva MD, FACC 04/15/19 1557 1557 155 Concepción Villanueva MD, FACC /INF
== END ==
LOC: M.NUC 04-01 08:47
DX: R07.89 Other chest pain (principal); I10 Essential (primary) hypertension; R93.1 Abnormal findings on diagnostic imaging of heart and coronary circulation; I48.91 Unspecified atrial fibrillation; I25.10 Atherosclerotic heart disease of native coronary artery without angina pectoris; E78.5 Hyperlipidemia, unspecified; Z82.49 Family history of ischemic heart disease and other diseases of the circulatory system; Z79.899 Other long term (current) drug therapy

== ENCOUNTER 2019-09-03 21:28 | Inpatient (IN) | payer OTHER ==
[~2019-09-03] VITALS: Ht 167.6 cm; Wt 64.9 kg
--- NOTE | ~2019-09-03 | PROC ---
[address] [address] PROCEDURE REPORT Name: SHELBY CHEN Room: [address] IN M.R.#: [id number] Admission: 09/04/19 Attend Phys: Samantha Garzon MD Discharge: 09/06/19 Date of : 33 Report #: [id number] THIS REPORT FOR: //name// cc: Tom Barnett MD, K. Gay MD ~ THIS REPORT FOR: //name// For GI report, please see the Provation report in Perceptive 7 content. By: 0639Medical Records Staff KATYA /ANAMIKA
[2019-09-03 21:46] VITALS: BP 134/64
[2019-09-03 21:52] LABS: URINE BILIRUBIN NEGATIVE (Negative); URINE BLOOD NEGATIVE (Negative); URINE CLARITY CLEAR; URINE COLOR YELLOW; URINE GLUCOSE-RANDOM NEGATIVE (Negative); URINE KETONES NEGATIVE (Negative); URINE LEUKOCYTES-REFLEX TRACE (Negative); URINE NITRITE-REFLEX NEGATIVE (Negative); URINE PROTEIN NEGATIVE (Negative); URINE SPECIFIC GRAVITY 1.015 (1.005-1.030); URINE UROBILINOGEN 0.2 E.U./dl (0.2-1.0)
[2019-09-03 22:01] LABS: CASTS None Seen /LPF (None Seen); CRYSTALS None Seen /LPF (None Seen); MUCUS None Seen strn/LPF (None Seen); SQUAMOUS 4-10 Moderate /LPF (0-3); URINE WBC-REFLEX 0-5 Rare /HPF (0-5)
[2019-09-03 22:02] LABS: ABSOLUTE BASOPHILS 0.1 thou/uL (0.0-0.2); ABSOLUTE EOSINOPHILS 0.2 thou/uL (0.0-0.7); ABSOLUTE LYMPHOCYTES 2.3 thou/uL (0.8-5.3); ABSOLUTE MONOCYTES 0.6 thou/uL (0.0-1.2); ABSOLUTE NEUTROPHILS 5.5 thou/uL (1.6-8.1); BASOPHILS 0.8 %; EOSINOPHILS 1.8 %; HEMATOCRIT 34.4 % (37.0-47.0); HEMOGLOBIN 11.7 gm/dL (12.0-15.0); LYMPHOCYTES 26.8 %; MCH 31.4 pg (26.0-34.0); MCV 92.4 fL (80.0-100.0); MONOCYTES 6.6 %; MPV 7.7 fl. (7.2-11.1); NUCLEATED RBCS 0 /100WBC; PLATELET COUNT* 245 thou/uL (150-400); RBC 3.72 mil/uL (4.20-5.00); RDW-CV 14.8 % (10.5-14.5); WBC 8.7 thou/uL (4.0-11.0)
[2019-09-03 22:02] LABS: BACTERIA-REFLEX None Seen /HPF (None Seen); URINE RBC 0-2 Rare /HPF (0-2)
[2019-09-03 22:12] LABS: CALCIUM 8.7 mg/dL (8.5-10.1); POTASSIUM 3.6 mmol/L (3.5-5.1)
[2019-09-03 22:13] LABS: PROTIME 10.3 Seconds (9.20-11.50)
[2019-09-03 22:22] LABS: ALBUMIN 3.8 g/dL (3.4-5.0); TOTAL BILIRUBIN 0.3 mg/dL (<0.1-1.0)
[2019-09-04 02:00] VITALS: BP 170/94
[2019-09-04 04:17] VITALS: BP 166/64
--- NOTE | 2019-09-04 04:27 | NUR ---
RECIEVED PT FROM ED PT ALERT ORIENTED X4 AT BEDSIDE, ASSESSMENT AND DATA BASE COMPLETED DISCUSSED PLAN OF CARE.PT PRESENTLY PAIN FREE. IV FLUIDS STARTED. PT AND VEBALIIZED UNDERSTANDING.
[2019-09-04 08:00] VITALS: BP 142/76
[2019-09-04 09:49] LABS: ABSOLUTE BASOPHILS 0.1 thou/uL (0.0-0.2); ABSOLUTE EOSINOPHILS 0.1 thou/uL (0.0-0.7); ABSOLUTE LYMPHOCYTES 2.1 thou/uL (0.8-5.3); ABSOLUTE MONOCYTES 0.5 thou/uL (0.0-1.2); ABSOLUTE NEUTROPHILS 4.9 thou/uL (1.6-8.1); BASOPHILS 0.8 %; EOSINOPHILS 1.4 %; HEMATOCRIT 33.4 % (37.0-47.0); HEMOGLOBIN 11.3 gm/dL (12.0-15.0); LYMPHOCYTES 27.4 %; MCH 31.5 pg (26.0-34.0); MCHC 33.9 g/dL (28.0-37.0); MCV 92.9 fL (80.0-100.0); MONOCYTES 6.1 %; MPV 7.4 fl. (7.2-11.1); NUCLEATED RBCS 0 /100WBC; PLATELET COUNT* 240 thou/uL (150-400); POLYS 64.3 %; RBC 3.59 mil/uL (4.20-5.00); RDW-CV 14.5 % (10.5-14.5); WBC 7.5 thou/uL (4.0-11.0)
[2019-09-04 09:56] LABS: CALCIUM 8.8 mg/dL (8.5-10.1); CREATININE 0.9 mg/dL (0.6-1.3); POTASSIUM 3.4 mmol/L (3.5-5.1)
--- NOTE | 2019-09-04 12:36 | EKG ---
[place] [address] ELECTROCARDIOGRAM REPORT Name: GUSTAVOSHELBY Room: [address] ADM IN M.R.#: [id number] Admission: 09/04/19 Attend Phys: Samantha Garzon, Discharge: Date of : 33 Date of Service: 09/03/19 214 Report #: [id number] THIS REPORT FOR: //name// 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1935 Requested By: Augustina Scott Order Number: [id number] MD: Pramod Benítez Measurements Intervals [place] Rate: 75 P: 52 NE: 205 QRS: -22 QRSD: 94 T: 54 QT: 374 QTc: 418 Interpretive Statements Sinus rhythm Borderline left axis deviation Minimal ST depression, anterolateral leads Compared to ECG 03/17/2019 20:21:43 no change Electronically Signed On 09-04-2019 12:35:03 CDT by Pramod Benítez [email or web address] <ELECTRONICALLY SIGNED> By: Pramod Benítez MD, FAC 09/04/19 1235 2142 [id number] Pramod Benítez MD, [facility] /EPI
[2019-09-04 16:00] VITALS: BP 159/69
--- NOTE | 2019-09-04 16:50 | NUR ---
AM ASSESSMENT AND VITAL SIGNS COMPLETED DOCUMENTED. IVF CONTINUES AND PT HAS TOLERATED CLEAR LIQUIDS TODAY. ABDOMINAL ULTRASOUND DONE, NO ACUTE FINDINGS. PT WILL BE HAVING A CT ANGIOGRAM, PIPIDA SCAN AND MRI/MRCP TOMORROW.IV FENTANYL GIVENFOR ABDOMINAL PAIN WITH RELIEF OBTAINED. FALL PRECAUTIONS AND HOURLY ROUNDING CONTINUE.
[2019-09-04 20:30] VITALS: BP 142/62
[2019-09-05 03:48] LABS: HEMATOCRIT 28.4 % (37.0-47.0); HEMOGLOBIN 9.7 gm/dL (12.0-15.0); MCHC 34.1 g/dL (28.0-37.0); MPV 7.9 fl. (7.2-11.1); RBC 3.02 mil/uL (4.20-5.00); RDW-CV 14.7 % (10.5-14.5); WBC 6.3 thou/uL (4.0-11.0)
[2019-09-05 04:08] LABS: ALBUMIN 3.1 g/dL (3.4-5.0); CALCIUM 8.1 mg/dL (8.5-10.1); CREATININE 0.8 mg/dL (0.6-1.3); MAGNESIUM 1.9 mg/dL (1.8-2.4); POTASSIUM 3.5 mmol/L (3.5-5.1); TOTAL BILIRUBIN 0.2 mg/dL (<0.1-1.0); TOTAL PROTEIN 5.7 g/dL (6.4-8.2)
--- NOTE | 2019-09-05 05:24 | NUR ---
PATIENT SLEPT MOST OF THE NIGHT. PATIENT HAD NO COMPLAINTS OF PAIN. IV FLUIDS CONTINUE TO INFUSE ORDERED. PATIENT HAS BEEN NPO SINCE MIDNIGHT. WILL CONTINUE TO MONITOR.
[2019-09-05 09:11] VITALS: BP 162/69
[2019-09-05 16:00] VITALS: BP 130/53
--- NOTE | 2019-09-05 16:19 | NUR ---
Pt lives at home with spouse. No DME prior to hospitalization and no known hx of HH or SNF. SW/CM to continue to follow to assist with safe dc planning.
--- NOTE | 2019-09-05 19:03 | NUR ---
ASSESSMENT COMPLETED DOCUMENTED THIS MORNING. FAMILY HAS BEEN AT BEDSIDE ALL DAY AND PATIENT HAS REAMINED FREE OF ABD PAIN, HER C/O PAIN IS HER BACK WHICH SHE STATES IS CHRONIC. ACETAMINOPHEN AND WARM BLANKET HAVE BEEN GIVEN X2 WITH RELIEF NOTED. SEEN BY GI AND SURGERY TODAY, SCHEDULED FOR EGD TOMORROW AROUND NOON WITH DR. GUTIÉRREZ
[2019-09-05 19:30] VITALS: BP 168/64
[2019-09-06 05:19] LABS: ABSOLUTE BASOPHILS 0.1 thou/uL (0.0-0.2); ABSOLUTE EOSINOPHILS 0.2 thou/uL (0.0-0.7); ABSOLUTE LYMPHOCYTES 2.2 thou/uL (0.8-5.3); ABSOLUTE MONOCYTES 0.4 thou/uL (0.0-1.2); ABSOLUTE NEUTROPHILS 3.6 thou/uL (1.6-8.1); BASOPHILS 1.1 %; EOSINOPHILS 3.6 %; HEMATOCRIT 28.8 % (37.0-47.0); LYMPHOCYTES 33.8 %; MCH 32.2 pg (26.0-34.0); MCHC 34.6 g/dL (28.0-37.0); MCV 92.9 fL (80.0-100.0); MONOCYTES 6.8 %; MPV 7.5 fl. (7.2-11.1); NUCLEATED RBCS 0 /100WBC; PLATELET COUNT* 207 thou/uL (150-400); POLYS 54.7 %; RDW-CV 14.7 % (10.5-14.5); WBC 6.6 thou/uL (4.0-11.0)
--- NOTE | 2019-09-06 05:34 | NUR ---
PT ALERT AND ORIENTED X3. FORGETFUL. CONFUSED. ASSESSMENT DOCUMENTED. PT'S DTR TOD ME BEGINNING OF SHIFT THAT PT TOLD HER SHE HAD PAIN ON THE LEFT SIDE OF HER HEAD ON THURSDAY AND AFTER THAT SHE HAS BEEN DISORIENTED. PT CONFIRMED THE INFORMATION. DR CAAL CALLED. CT OF HEAD DONE. CT WAS NEGATIVE. MEDS GIVEN PER EMAR. NPO AFTER MN. CONSENT SIGNED IN THE CHART. PT'S HUSBNAD AT BEDSISE. PT'S VERY CONFUSED AND SOMTIMES UNABLE TO MAKE COHERENT STATEMENTS. PT AND SLEPT MOST OF SHIFT. IN THE SPECIFICATION MANAGER, PT'S BARRICADED ROOM DOOR WITH BSC. THIS WAS REMOVED AND PT'S WAS EDUCATED ON THE IMPORTANCE OF HAVING EASY ACCESS TO ROOM. PT PULLED OUT TWO F HER IVs. NEW IV TO RFA 20G. NURSING TO CALL PT'S DTR THIS AM TO SEE IF PT'S CAN GO HOME. WILL CONTINUE TO MONITOR.
[2019-09-06 05:39] LABS: ALBUMIN 3.2 g/dL (3.4-5.0); CALCIUM 8.1 mg/dL (8.5-10.1); POTASSIUM 3.6 mmol/L (3.5-5.1); TOTAL BILIRUBIN 0.2 mg/dL (<0.1-1.0); TOTAL PROTEIN 5.9 g/dL (6.4-8.2)
[2019-09-06 07:42] VITALS: BP 168/73
[2019-09-06 08:30] VITALS: BP 168/73
--- NOTE | 2019-09-06 13:54 | CON ---
[address] [address] CONSULTATION Name: GUSTAVOSHELBY LITTLEJOHN Room: [address] IN M.R.#: [id number] Admission: 09/04/19 Attend Phys: Samantha Garzon MD Discharge: Date of : 33 Report #: [id number] THIS REPORT FOR: //name// cc: Tom Barnett MD, K. Gay MD ~ THIS REPORT FOR: //name// CC: Porsche Garzon DICTATED BY: Leanne Meléndez [facility] DATE OF SERVICE: 09/05/2019 PRIMARY CARE PHYSICIAN: Porsche Barnett MD Please note at the time of this dictation, the patient was seen and physically examined by myself. REASON FOR CONSULTATION: Epigastric pain, nausea, and abnormal CT. HISTORY OF PRESENT ILLNESS: This is a pleasant 84-year-old female who has been having chronic intermittent epigastric discomfort in the right upper and mid epigastric area. She states this is cramping in nature, does not radiate anywhere, and is not associated with any particular type of day or stimulus. She states overall episodes are of very mild short duration and may last 5-30 minutes. She has had a little bit of some nausea with this and does have long-term issues with chronic constipation. The patient was admitted with similar episodes back in 02/2019. She was started on some Maalox, her symptoms went away, and she did not have any endoscopy evaluation done. She did have a HIDA scan done at that time that showed an EF of 78%. In talking with the patient, she does admit to taking Aleve 2 tablets on a daily basis for her generalized abdominal discomfort. Her CT findings are similar from 02/2019. She has had a colonoscopy in the remote past, like 2010. She has a history of some collagenous colitis. ALLERGIES: INCLUDE SULFA, PROPOXYPHENE, AND PENTAZOCINE. MEDICATIONS FROME HOME: Include losartan, levothyroxine, and carvedilol as well as Aleve. PAST MEDICAL HISTORY: Consists of heart disease, hypertension, GERD, hypothyroidism, constipation, collagenous colitis, and history [place] [address] CONSULTATION Name: SHELBY CHEN MELISSA Room: [address] IN [facility]#: [id number] Admission: 09/04/19 Attend Phys: Samantha Garzon MD Discharge: Date of : 33 Report #: [id number] PAST SURGICAL HISTORY: Appendectomy, hysterectomy, and tonsillectomy. FAMILY HISTORY: Negative for any GI or female cancers. SOCIAL HISTORY: She lives with her spouse. Occasional wine. Denies any smoking or illegal drug use. REVIEW OF SYSTEMS: A 12-point review of systems is essentially negative except what is mentioned in the HPI. PHYSICAL EXAMINATION: VITAL SIGNS: Temperature 36.7, pulse 65, respirations 20, and blood pressure 162/69. HEART: Regular rate and rhythm. LUNGS: Clear. ABDOMEN: Soft. Positive bowel sounds in all 4 quadrants with some mild epigastric tenderness noted to palpation. LABORATORY DATA: Hemoglobin 9.7, white count 6.3, and platelets 195. GFR is 68. CT shows moderate thickening of the distal stomach and pylorus with moderate amount of gas and stool in the ascending colon. IMPRESSION: 1. Abdominal pain, epigastric. 2. Nausea which is resolved. 3. Abnormal CT, thickening of the stomach and the first part of the small intestine. 4. Nonsteroidal anti-inflammatory drug use regularly. 5. Anemia. PLAN: 1. EGD tomorrow with Dr. Corral. 2. We will continue her Pepcid b.i.d. 3. Further recommendations to be made once the procedure has been performed. Thank you for allowing us to participate in this patient's care. Please do not hesitate to call with any questions in regard to this consult. <ELECTRONICALLY SIGNED> By: Haider Corral MD 09/06/19 1354 1230 1403Haider Corral MD /nt
[2019-09-06] MEDS ORDERED: PROTONIX40 M2 PO (14:52)
[2019-09-06] MEDS ORDERED: CARAFATE 1 GM TA1 GM PO (14:52)
[2019-09-06 14:57] VITALS: BP 168/73
[2019-09-06 15:30] VITALS: BP 168/73
--- NOTE | 2019-09-06 15:30 | NUR ---
PT A&OX3 VSS. PT NPO AT START OF SHIFT FOR EGD. PT DENIES N/V/PAIN AT THIS TIME. PT DGTR IN ROOM AT THIS TIME W/ PT SPOUSE. PT TO PACU 1030, AND RETURNED 1330. REPORT FROM MOLINA DE SOUZA. VSS, NO SIGN/SYMPTOM OF DISTRESS. PT ASKS WHEN SHE WILL BE DC'D FROM HOSPITAL. DR CAAL AWARE AND ORDERS ARE IN PROGRESS. IV TO RFA DC'D PRIOR TO LEAVING UNIT, NO REDNESS/SWELLING NOTED AT SITE. PT AND FAMILY STATE UNDERSTANDING OF DC INSTRUCTIONS AND F/U INFORMATION. PT LEAVES UNIT IN WC WITH NURSING STAFF.
--- NOTE | 2019-09-08 13:08 | PATH ---
[address] [address] PATHOLOGY RPT PROCEDURE Name: SHELBY GARCIA Room: [address] IN M.R.#: [id number] Admission: 09/04/19 Date of : 33 Discharge: 09/06/19 Report #: [id number] Path Case #: [id number] [facility] Accession Number: [id number] . 01 Material submitted: . PART A: duodenum - DUODENAL BIOPSY,DUODENAL ULCER PART B: stomach - GASTRIC BIOPSY, GASTRIC ULCER R/O H PYLORI . 01 Clinical history: . A. Duodenal ulcer B. Gastric ulcer, R/O H. pylori . 02 Diagnosis: A. Duodenal biopsy/duodenal ulcer: - Moderate nonspecific active duodenitis, negative for granulomas, viral inclusions and dysplasia. . B. Gastric biopsy/gastric ulcer: - Moderate chronic and active gastritis suggesting reactive gastropathy (chemical gastritis), negative for Helicobacter pylori organisms, granulomas and dysplasia. (SCOUT:jes; 09/08/2019) . Special stain on B: H. pylori immuno QMS 09/08/2019 1043 Local . 02 Electronically signed: . Ant Parsons MD, Pathologist NPI- [id number] . 01 Gross description: . A. The specimen is received in formalin, labeled "Shelby Garcia, duodenal biopsy". Received are three segments of pale steven soft tissue ranging in size from 0.3 to 0.6 cm in maximum dimensions. The specimen is submitted entirely in cassette A1. . B. The specimen is received in formalin, labeled "Shelby Garcia, gastric biopsy gastric ulcer, R/O H. pylori". Received are three segments of pale steven soft tissue ranging in size from 0.3 to 0.4 cm in maximum dimensions. The specimen is submitted entirely in cassette B1. (CAA; 09/07/2019) QAC/QA 09/07/2019 1210 Local . 02 Pathologist provided ICD-10: K29.80, K29.50 . 02 CPT . 949637, 505443, [id number] [place] [address] PATHOLOGY RPT PROCEDURE Name: SHELBY GARCIA Room: [address] IN M.R.#: [id number] Admission: 09/04/19 Date of : 33 Discharge: 09/06/19 Report #: [id number] Path Case #: [id number] Specimen Comment: A courtesy copy of this report has been sent to [phone], [phone]- Specimen Comment: [id number] Specimen Comment: Report sent to Dr. Garzon and Dr. Barnett Performed at: [address] [facility] [id number] [facility] [address], [place], [place] [id number] MD René Nunes MD Phone: [phone] Performed at: 02 [facility], [facility] [address] [place], [place] [id number] MD Ant Parsons MD Phone: [phone]
== END 2019-09-06 15:30 | disposition home or self-care (01) | DRG 384 ==
LOC: M.ERS 21:28 → M.3W 09-04 01:01 → M.TBA-ER 09-04 01:01 → M.3W 09-04 03:22
PROVIDERS: Emergency Medicine; Internal Medicine; ADMIT Internal Medicine
DX: K27.9 Peptic ulcer, site unspecified, unspecified as acute or chronic, without hemorrhage or perforation (principal); D64.9 Anemia, unspecified; I10 Essential (primary) hypertension; I48.91 Unspecified atrial fibrillation; K21.9 Gastro-esophageal reflux disease without esophagitis; E87.6 Hypokalemia; K80.20 Calculus of gallbladder without cholecystitis without obstruction; E03.9 Hypothyroidism, unspecified; K44.9 Diaphragmatic hernia without obstruction or gangrene; Z90.49 Acquired absence of other specified parts of digestive tract; Z90.710 Acquired absence of both cervix and uterus; Z88.2 Allergy status to sulfonamides; Z88.8 Allergy status to other drugs, medicaments and biological substances; Z82.49 Family history of ischemic heart disease and other diseases of the circulatory system

== ENCOUNTER 2021-01-09 15:44 | Emergency (ER) | payer OTHER ==
[~2021-01-09] VITALS: Ht 167.6 cm; Wt 63.5 kg
[~2021-01-09 15:44] MED LIST changes: +CARAFATE 1 GM TA1 GM PO; +PROTONIX40 M2 PO
[2021-01-09 17:55] LABS: ABSOLUTE BASOPHILS 0.1 thou/uL (0.0-0.2); ABSOLUTE EOSINOPHILS 0.2 thou/uL (0.0-0.7); ABSOLUTE MONOCYTES 0.7 thou/uL (0.0-1.2); ABSOLUTE NEUTROPHILS 3.8 thou/uL (1.6-8.1); BASOPHILS 1.1 %; EOSINOPHILS 2.3 %; HEMATOCRIT 37.4 % (37.0-47.0); HEMOGLOBIN 12.6 gm/dL (12.0-15.0); MCH 31.5 pg (26.0-34.0); MCHC 33.7 g/dL (28.0-37.0); MCV 93.4 fL (80.0-100.0); MONOCYTES 10.2 %; MPV 7.3 fl. (7.2-11.1); NUCLEATED RBCS 0 /100WBC; PLATELET COUNT* 191 thou/uL (150-400); POLYS 56.4 %; RBC 4.01 mil/uL (4.20-5.00); RDW-CV 15.3 % (10.5-14.5); WBC 6.7 thou/uL (4.0-11.0)
[2021-01-09 18:04] LABS: CALCIUM 8.7 mg/dL (8.5-10.1); CREATININE 1.6 mg/dL (0.6-1.3); POTASSIUM 3.8 mmol/L (3.5-5.1)
[2021-01-09 18:08] LABS: ALBUMIN 3.7 g/dL (3.4-5.0); TOTAL BILIRUBIN 0.3 mg/dL (<0.1-1.0); TOTAL PROTEIN 7.2 g/dL (6.4-8.2)
[2021-01-09 19:08] LABS: URINE BILIRUBIN NEGATIVE (Negative); URINE BLOOD NEGATIVE (Negative); URINE COLOR YELLOW; URINE GLUCOSE-RANDOM NEGATIVE (Negative); URINE KETONES NEGATIVE (Negative); URINE LEUKOCYTES-REFLEX 1+ (Negative); URINE NITRITE-REFLEX NEGATIVE (Negative); URINE PROTEIN NEGATIVE (Negative); URINE UROBILINOGEN 0.2 E.U./dl (0.2-1.0)
[2021-01-09 19:10] LABS: URINE CLARITY HAZY
[2021-01-09 19:25] LABS: BACTERIA-REFLEX None Seen /HPF (None Seen); CASTS None Seen /LPF (None Seen); CRYSTALS None Seen /LPF (None Seen); SQUAMOUS 0-3 Few /LPF (0-3); URINE RBC None Seen /HPF (0-2); URINE WBC-REFLEX 0-5 Rare /HPF (0-5)
[2021-01-09 19:47] VITALS: BP 139/51
--- NOTE | 2021-01-10 11:44 | EKG ---
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1935 Requested By: Samuel Cervantes Order Number: [id number] MD: Raza Thompson Measurements Intervals [place] Rate: 59 P: 47 TN: 220 QRS: -22 QRSD: 97 T: 29 QT: 449 QTc: 445 Interpretive Statements Sinus rhythm Prolonged TN interval Left ventricular hypertrophy, by voltage Compared to ECG 09/03/2019 21:42:44 First degree AV block now present Left ventricular hypertrophy now present ST (T wave) deviation no longer present Electronically Signed On 01-10-2021 11:44:09 CDT by Raza Thompson [email or web address] <ELECTRONICALLY SIGNED> By: Raza Thompson MD, FACC 01/10/21 1144 1803 1803 Raza Thompson MD, FAC /EPI
== END 2021-01-09 19:48 | disposition home or self-care (01) ==
LOC: M.ERS 15:44
PROVIDERS: Nurse Practitioner
DX: R53.1 Weakness (principal); I10 Essential (primary) hypertension; E03.9 Hypothyroidism, unspecified; Z88.2 Allergy status to sulfonamides; Z88.8 Allergy status to other drugs, medicaments and biological substances